=== PATIENT | female | born 1980 | race Caucasian/White ===

== ENCOUNTER → 2016-09-06 | Day surgery (SDC) | payer OTHER | END | disposition home or self-care (01) | LOC: FIMAGING 11:09 | PROVIDERS: ATTEND Radiology Diagnostic Radiology | PROC: 02HV33Z Insertion of Infusion Device into Superior Vena Cava, Percutaneous Approach (ICD-10-PCS; principal; 2016-09-06) | DX: Z46.89 Encounter for fitting and adjustment of other specified devices (principal); A69.20 Lyme disease, unspecified; B60.0 Babesiosis; A44.9 Bartonellosis, unspecified | CPT/HCPCS: 36556; 77001; C1751 ==

== ENCOUNTER → 2017-09-04 | Outpatient (CLI) | payer OTHER | LOC: FIMAGING 09:39 | PROVIDERS: ATTEND Family Medicine | DX: R74.8 Abnormal levels of other serum enzymes (principal); R10.31 Right lower quadrant pain; G12.21 Amyotrophic lateral sclerosis ==